=== PATIENT | female | born 1965 | race Caucasian/White ===

== ENCOUNTER 2020-10-20 09:22 | Inpatient (IN) | payer BC, OTHER ==
[~2020-10-20] VITALS: Ht 172.7 cm; Wt 68.9 kg
--- NOTE | 2020-10-20 09:30 | NUR ---
Patient brought in by 83 for 10/29 acute onset lower back pain, patient received pain medication en route, 18G IV noted in right AC, Vitals WNMD Chucho at bedside for assessment at this time
[2020-10-20] MEDS ORDERED: KETOROLAC TROMETHAMINE 30 MG INJ ONE (09:59)
[2020-10-20] MEDS ORDERED: ONDANSETRON 4 MG/2 ML VIAL ONE ×2 (09:59→12:24)
[2020-10-20] MEDS ORDERED: KETOROLAC TROMETHAMINE 30 MG INJ IVP ONE (10:00)
[2020-10-20] MEDS ORDERED: IV NORMAL SALINE 1000 ML BAG IV ONE ×3 (10:00→12:30)
[2020-10-20] MEDS ORDERED: ONDANSETRON 4 MG/2 ML VIAL IV ONE ×3 (10:00→15:30)
--- NOTE | 2020-10-20 10:10 | NUR ---
Ultrasound noted at bedside
[2020-10-20 10:28] LABS: HEMATOCRIT 42.1 % (31.2-41.9); MEAN CORPUSCULAR HEMOGLOBIN 31.1 uug (24.7-32.8); MEAN CORPUSCULAR VOLUME 92.4 fL (75.5-95.3); PLATELET COUNT (AUTO) 195 K/uL (179-408)
--- NOTE | 2020-10-20 10:30 | NUR ---
Patient refused Dilaudid 0.5mg at this time, Dilaudid wasted with Olga COOK Addendum: 10/22/20 at 1737 by GALDINO Forgot to enter amount of 0.5 mg of dilaudid on intial waste, documentation states 0mg was wasted, correct amount on initial wasted should be 0.5mg of dilaudid wasted with Olga cook, remaining amount of 0.5 mg of dilaudid wasted with Olga COOK
[2020-10-20 10:31] LABS: CREATININE 0.9 mg/dL (0.6-1.3); POTASSIUM 4.1 mmol/L (3.5-5.1)
--- NOTE | 2020-10-20 10:32 | NUR ---
patient states her pain level is tolerable
[2020-10-20 10:37] LABS: BILIRUBIN,DIRECT 0.1 mg/dL (0.0-0.2); BILIRUBIN,TOTAL 0.4 mg/dL (0.2-1.0); TOTAL PROTEIN, SERUM 6.6 g/dL (6.4-8.2)
[2020-10-20] MEDS ORDERED: TAMSULOSIN HCL 0.4 MG CAP.SR.24H PO ONE (10:45)
[2020-10-20] MEDS ORDERED: MORPHINE SULFATE 4 MG/1 ML DISP.SYRIN IV ONE ×2 (11:15→12:30)
[2020-10-20] MEDS ORDERED: MORPHINE SULFATE 4 MG/1 ML DISP.SYRIN ONE ×2 (11:20→12:24)
[2020-10-20] MEDS ORDERED: HYDROMORPHONE 1 MG/1 ML DISP.SYRIN IV ONE (13:15)
[2020-10-20] MEDS ORDERED: HYDROMORPHONE 1 MG/1 ML DISP.SYRIN ONE (13:54)
--- NOTE | 2020-10-20 14:32 | NUR ---
Calling Brooke Pollard at this time for panel call
[2020-10-20] MEDS ORDERED: IV NS 1000 ML 1,000 ML IV PRN (15:00)
[2020-10-20] MEDS ORDERED: ONDANSETRON 4 MG/2 ML VIAL IV PRN (15:00)
[2020-10-20] MEDS ORDERED: MAGNESIUM HYDROXIDE 30 ML LIQUID UDC PO PRN (15:00)
[2020-10-20] MEDS ORDERED: KETOROLAC TROMETHAMINE 30 MG INJ IVP PRN (15:00)
[2020-10-20] MEDS ORDERED: Z GUARD REMEDY PASTE 57 GM TUBE TOP PRN (15:00)
[2020-10-20] MEDS ORDERED: ACETAMINOPHEN 325 MG TABLET PO PRN (15:00)
--- NOTE | 2020-10-20 17:10 | NUR ---
Pt. admitted to [facility] , under care of Brooke Pollard Belongs List completed and all belongings sent with patient
--- NOTE | 2020-10-20 17:35 | NUR ---
received from ER awake alert and oriented, per sheila, made comfortable in bed, orlifented to bed control and room, verbalized understanding, vs and list of belongings taken cared by KINESEOLOGIST, safety measures initiated, instructed that all urine will be strained
[2020-10-20 17:45] VITALS: BP 124/73
[2020-10-20] MEDS ORDERED: MORPHINE SULFATE 4 MG/1 ML DISP.SYRIN IV PRN (20:15)
[2020-10-20 20:39] VITALS: BP 118/74
[2020-10-20] MEDS: IV NS 1000 ML 1,000 ML IV PRN (21:09)
[2020-10-20] MEDS: KETOROLAC TROMETHAMINE 30 MG INJ IM SCH (22:01)
--- NOTE | 2020-10-20 22:48 | NUR ---
Received pt awake on bed, alert and oriented x4, no respiratory distress noted. Peripheral line on RAC remains intact and infusing well with NS at 100 ml/hr. Rate increased to 150 ml/hr as ordered, no s/sx of infiltration on IV site. Instructed pt to ask for assistance in urinating, urine will be strained for presence of kidney stone. Pt verbalized understanding. Dr. Bose made rounds with new order of Toradol IV RTC. Also left instruction to update him at 0700H braden with pt's condition. Toradol IV given and tolerated well, flank pain present 2/10 with deep palpation only. All needs attended. Call light placed within reach. Will continue to monitor.
[2020-10-21 04:00] VITALS: BP 121/69
[2020-10-21] MEDS: IV NS 1000 ML 1,000 ML IV PRN ×2 (04:02→10:56)
[2020-10-21] MEDS: KETOROLAC TROMETHAMINE 30 MG INJ IM SCH ×2 (05:49→12:00)
[2020-10-21 06:18] LABS: HEMATOCRIT 38.1 % (31.2-41.9); MEAN CORPUSCULAR VOLUME 92.5 fL (75.5-95.3); PLATELET COUNT (AUTO) 197 K/uL (179-408)
--- NOTE | 2020-10-21 06:24 | NUR ---
Patient slept intermittently throughout the night. Peripheral line on RAC remains intact and infusing well with NS at 150 ml/hr, no s/sx of infiltration on IV site. Toileting assistance rendered, urine strained, no kidney stone or sediment noted. Denies pain and discomfort at this time, able to ambulate without difficulty. All needs attended. Call light placed within reach. Frequent visual checks done. Will endorse for continuity of care.
[2020-10-21 06:37] LABS: CREATININE 0.7 mg/dL (0.6-1.3); PHOSPHOROUS 3.1 mg/dL (2.5-4.9); POTASSIUM 3.8 mmol/L (3.5-5.1)
--- NOTE | 2020-10-21 07:18 | NUR ---
Received call from arianna Velarde to discharge pt if no c/o of pain and to get order for pain medication from primary doctor. Endorsed to AM shift.
[2020-10-21 11:25] VITALS: BP 134/76
[2020-10-21] MEDS ORDERED: CALCIUM CARB/VITAMIN D 500MG-200UNITS TABLET PO SCH (11:30)
[2020-10-21] MEDS ORDERED: CALC-261 PO (12:01)
[2020-10-21 14:11] LABS: *BILIRUBIN,URIN NEGATIVE (NEGATIVE); *CLARITY,URINE CLEAR (CLEAR); *COLOR,URINE YELLOW (YELLOW); *KETONES,URINE NEGATIVE (NEGATIVE); *UROBILINOGEN,URINE 0.2 E.U./dl (NORMAL); LEUKOCYTE ESTERASE ,URINE NEGATIVE (NEGATIVE); NITRITE, URINE NEGATIVE (NEGATIVE); PH,URINE 5.5 (5.0-8.0); UGLUCOSE NEGATIVE (NEGATIVE)
[2020-10-21 14:16] LABS: *BLOOD, URINE NEGATIVE (NEGATIVE)
--- NOTE | 2020-10-21 14:21 | NUR ---
dc orders received noted and carried out,dc heplock per md orders.dc instruction and education given to the pt ,pt said she will follow up with her pcp in one week pt left the facility via private car in stable condition
== END 2020-10-21 14:23 | disposition home or self-care (01) | DRG 690 ==
LOC: ER 09:22 → MEDSURG3 17:00
PROVIDERS: ADMIT Nurse Practitioner Acute Care; ATTEND Nurse Practitioner Acute Care
DX: N13.6 Pyonephrosis (principal); K76.89 Other specified diseases of liver; Z96.619 Presence of unspecified artificial shoulder joint; Z20.822 Contact with and (suspected) exposure to COVID-19; Z86.32 Personal history of gestational diabetes
CPT/HCPCS: 36415; 71045; 76770; 83605; 84100; 85025; 87086; 93005; A4663; G0378; J1170; J1885; J2270; J2405; J7030